=== PATIENT | male | born 1955 | race Caucasian/White ===

== ENCOUNTER 2016-10-07 12:21 | Emergency (ER) | payer OTHER ==
[~2016-10-07] VITALS: Ht 182.9 cm; Wt 107.0 kg
--- NOTE | ~2016-10-07 | CR72 ---
[facility] A Service of [facility] RADIOLOGY TEXT RESULTS PATIENT: MAULIK SHETH LOCATION: [facility] : 53 UNIT #: [id number] AGE: [address]: Miguel Angel Li MD SEX: M ORDER DR: [id number] [facility] [address]. [place], [place] [address] [id number] MR#: [id number] #: [id number] NAME: MAULIK SHETH : 1955 SEX: M STUDY DATE/TIME: 10/07/2016 12:57 UNIT: [facility] ROOM: STUDY DESCRIPTION: CR Chest Single View Portable Attending Physician: Miguel Angel Li M.D. Ordering Physician: Miguel Angel Li M.D. Primary Care Physician: Primary Care Physician No MEDICAL IMAGING REPORT This report is preliminary unless electronic signature is present EXAM Portable chest HISTORY Shortness of air and cough for 2 days. FINDINGS The cardiac size and pulmonary vascularity are normal. Minimal atelectasis or scarring at the left base. No airspace infiltrates or effusions. Old healed posterior right rib fractures. IMPRESSION No acute findings and no evidence of active disease. Dictated by... Eloy Duggan M.D. THIS IS AN ELECTRONICALLY VERIFIED REPORT Eloy Duggan M.D. at 10/07/2016 9:37 PM DFL/psc TD: 10/07/2016 21:15 JOB #: [id number] MEDICAL IMAGING REPORT Page 1 of 1 COPY
--- NOTE | ~2016-10-07 | EKG ---
PATIENT: MAULIK SHETH UNIT #: [id number] Ventricular Rate: 82 BPM Atrial Rate: 82 BPM P-R Interval: 132 ms QRS Duration: 78 ms Q-T Interval: 364 ms QTC Calculation(Bezet): 425 ms P Milo: 75 degrees Calculated R Milo: 70 degrees Calculated T Milo: 53 degrees Diagnosis Line: Normal sinus rhythm Diagnosis Line: Normal ECG Diagnosis Line: No previous ECGs available Diagnosis Line: Confirmed by RADHA HOOVER MD ([id number]) on Diagnosis Line: 10/07/2016 5:44:25 PM INTERPRETING MD: SNEHA COTTER
[2016-10-07 13:03] LABS: POC - CKMB <1.0 ng/mL (0.0-7.9); POC - TROPONIN <0.05 ng/mL (<=0.05)
[2016-10-07 13:07] LABS: BASOPHIL# 0.2 X10e3 (0-0.3); BASOPHIL% 1.3 % (0-2.5); EOSINOPHIL# 0.3 X10e3 (0-0.7); HEMATOCRIT 42.7 % (38.0-50.0); HEMOGLOBIN 13.5 gm/dL (13.0-16.0); LYMPHOCYTE# 2.3 X10e3 (1.0-3.5); LYMPHOCYTE% 17.5 % (17.0-45.0); MEAN CELL VOLUME 88.2 FL (83-96); MEAN CORPUSCULAR HEMOGLOBIN 27.8 PG (28-34); MEAN CORPUSCULAR HGB CONC 31.5 g/dL (30-36); MEAN PLATELET VOLUME 7.6 FL (6.5-11.5); MONOCYTE# 0.7 X10e3 (0-1.0); NEUTROPHIL# 9.6 X10e3 (1.5-7.1); NEUTROPHIL% 74.2 % (40-75); PLATELET COUNT 223 X10e3 (140-420); RED BLOOD COUNT 4.85 X10e (3.90-5.60); RED CELL DISTRIBUTION WIDTH 16.4 % (11.0-15.5)
[2016-10-07 13:08] LABS: DIFF IND NO
[2016-10-07 13:21] LABS: ALBUMIN SERUM 3.8 g/dL (3.5-5.0); BILIRUBIN, DIRECT 0.1 mg/dL (0.0-0.2); BILIRUBIN,INDIRECT 0.3 mg/dL (0.0-0.9); BILIRUBIN,TOTAL 0.4 mg/dL (0.2-2.0); CALCIUM SERUM 9.2 mg/dL (8.4-10.2); CREATININE SERUM 1.1 mg/dL (0.6-1.4); GLOM FILT RATE Estimated 71.6 mL/min (>60); POTASSIUM 3.7 mmol/L (3.5-5.1); PROTEIN TOTAL SERUM 6.9 g/dL (6.0-8.3)
== END 2016-10-07 15:13 | disposition home or self-care (01) ==
LOC: CED 12:21
PROVIDERS: Emergency Medicine
DX: J44.1 Chronic obstructive pulmonary disease with (acute) exacerbation (principal); F41.9 Anxiety disorder, unspecified; G89.29 Other chronic pain; M54.2 Cervicalgia
CPT/HCPCS: 36415; 71010; 80048; 80076; 82553; 84484; 85025; 93005; 94640; 96374; 99285; J2930